=== PATIENT | female | born 1990 | race Caucasian/White ===

== ENCOUNTER 2019-06-18 21:05 | Emergency (ER) | payer OTHER ==
--- NOTE | 2019-06-18 21:24 | UC ---
Complaint Female HPI - HPI Summary HPI Summary: One day of severe dysuria. Has mirena. has had several uti's in the past. - History Of Current Complaint Chief Complaint: UCGU Stated Complaint: POSS UTI Time Seen by Provider: 06/18/19 21:23 Hx Obtained From: Patient ?: No - mirena Onset/Duration: Sudden Onset Timing: Constant Character: Burning Aggravating Factor(s): Urination Alleviating Factor(s): Nothing - Allergies/Home Medications Allergies/Adverse Reactions: Allergies Allergy/AdvReac Type Severity Reaction Status Date / Time No Known Allergies Allergy Verified 06/18/19 21:26 Home Medications: Home Medications Nitrofurantoin Macrocrystals* [Macrodantin 100 mg*] 100 mg PO BID 10 Days #20 cap 06/18/19 [Rx] PMH/Surg Hx/FS Hx/Imm Hx Previously Healthy: Yes - Surgical History Surgical History: None - Family History Known Family History: Positive: Unknown - Social History Occupation: Employed Full-time Review of Systems All Other Systems Reviewed And Are Negative: Yes Constitutional: Negative: Fever, Chills, Fatigue Gastrointestinal: Negative: Negative Genitourinary: Positive: Dysuria, Frequency. Negative: Hematuria, Urgency, Vaginal/Penile Discharge Physical Exam Triage Information Reviewed: Yes Appearance: Well-Appearing Vital Signs Reviewed: Yes Respiratory: Positive: Normal breath sounds Abdomen Description: Positive: Nontender, Soft. Negative: CVA Tenderness (R), CVA Tenderness (L) Complaint Female Dx - Course Course Of Treatment: Acute dysuria. UA showed possible uti will tx. recommended sti testing but she declined. on mirena but urine hcg neg today. disc how to take meds. vitals good. return if not improving. - Differential Dx/Diagnosis Differential Diagnosis/HQI/PQRI: Sexually Transmitted Disease, Urinary Tract Infection Provider Diagnosis: Dysuria Discharge ED - Sign-Out/Discharge Documenting (check all that apply): Patient Departure All imaging exams completed and their final reports reviewed: No Studies - Discharge Plan Condition: Good Disposition: HOME Prescriptions: Nitrofurantoin Macrocrystals* [Macrodantin 100 mg*] 100 mg PO BID 10 Days #20 cap Patient Education Materials: Urinary Tract Infection in Women (ED) Referrals: No Primary Care Phys,NOPCP [Primary Care Provider] - Additional Instructions: If symptoms persist please consider getting further testing. - Billing Disposition and Condition Condition: GOOD Disposition: Home
[2019-06-18 21:25] VITALS: BP 130/79
[2019-06-18] MEDS ORDERED: Nitrofurantoin Macrocrystals* 50 MG CAP PO ONE (21:39)
[2019-06-18] MEDS ORDERED: Phenazopyridine TAB* 100 MG PO ONE (21:40)
== END 2019-06-18 21:58 | disposition home or self-care (01) ==
LOC: UCEAST 21:05
DX: R30.0 Dysuria (principal); R35.0 Frequency of micturition; Z32.02 Encounter for pregnancy test, result negative; Z97.5 Presence of (intrauterine) contraceptive device
CPT/HCPCS: 81003; 84702; 87086; 99202; A9270-GY; G0463